=== PATIENT | female | born 1980 | race Hispanic/Latino ===

== ENCOUNTER 2017-04-27 16:29 | Emergency (ER) | payer OTHER ==
[2017-04-27 16:44] VITALS: BP 127/67; PULSE 78; RESP 17; TEMP 98; O2SAT 100
--- NOTE | 2017-04-27 17:41 | ED PDOC ---
HPI: Female Pain Time Seen by Provider: 04/27/17 17:19 Chief Complaint (Nursing): Female Genitourinary Chief Complaint (Provider): Pelvic cramps History Per: Patient History/Exam Limitations: no limitations Onset/Duration Of Symptoms: Days (two days) Current Symptoms Are (Timing): Still Present Additional History Per: Patient Additional Complaint(s): Pt. with vaginal bleeding, improved now. Pelvic cramps. No back pain, dysuria , weakness. No nausea. 7wks preg. Past Medical History Reviewed: Nursing Documentation, Vital Signs Vital Signs: Last Vital Signs Temp 98 F 04/27/17 16:41 Pulse 78 04/27/17 16:41 Resp 17 04/27/17 16:41 BP 127/67 04/27/17 16:41 Pulse Ox 100 04/27/17 16:41 - Medical History PMH: No Chronic Diseases - Surgical History Surgical History: No Surg Hx - Family History Family History: States: Unknown Family Hx - Living Arrangements Living Arrangements: With Family - Immunization History Hx Tetanus Toxoid Vaccination: No Hx Influenza Vaccination: No Hx Pneumococcal Vaccination: No - Allergies Allergies/Adverse Reactions: Allergies Allergy/AdvReac Type Severity Reaction Status Date / Time No Known Allergies Allergy Verified 04/27/17 16:40 Review of Systems ROS Statement: Except As Marked, All Systems Reviewed And Found Negative Genitourinary Female: Positive for: Vaginal Bleeding, Pelvic Pain Physical Exam - Reviewed Nursing Documentation Reviewed: Yes Vital Signs Reviewed: Yes - Physical Exam Appears: Positive for: Non-toxic, No Acute Distress Head Exam: Positive for: ATRAUMATIC, NORMAL INSPECTION, NORMOCEPHALIC Skin: Positive for: Normal Color, Warm, DRY Eye Exam: Positive for: EOMI, Normal appearance, PERRL ENT: Positive for: Normal ENT Inspection Neck: Positive for: Normal, Painless ROM Cardiovascular/Chest: Positive for: Regular Rate, Rhythm Respiratory: Positive for: CNT, Normal Breath Sounds Gastrointestinal/Abdominal: Positive for: Bowel Sounds, Soft, Tenderness ( across lower pelvic) Back: Positive for: Normal Inspection. Negative for: L CVA Tenderness, R CVA Tenderness Extremity: Positive for: Normal ROM. Negative for: Tenderness, Pedal Edema Neurologic/Psych: Positive for: Alert, Oriented - Laboratory Results Result Diagrams: 04/27/17 19:30 04/27/17 19:30 - ECG O2 Sat by Pulse Oximetry: 100 Pulse Ox Interpretation: Normal - CT Scan/US US Other Rad Studies (CT/US): Read By Radiologist Other Rad Interpretation: SLIUP - Progress ED Course And Treament: 2042: Stable. AAOx3. Pain free. Tolerated PO. Disposition - Clinical Impression Clinical Impression: Threatened - Patient ED Disposition Is Patient to be Admitted: No Counseled Patient/Family Regarding: Studies Performed, Diagnosis, Need For Followup - Disposition [facility] - [facility]17 Disposition: Routine/Home Disposition Time: 22:00 Condition: STABLE Additional Instructions: Return if not better in 3 days. Instructions: Threatened Miscarriage Forms: [facility] (Tongan), [facility] ED School/Work Excuse
--- NOTE | 2017-04-27 19:43 | US ---
EXAM: US , Transvaginal EXAM DATE/TIME: 04/27/2017 5:41 PM CLINICAL HISTORY: 36 years old, female; Pain; complicated by abdominal or pelvic pain; Lower; First trimester; Gestational age or lmp: 03/03/2017; ; Additional info: Preg and pain TECHNIQUE: Real-time transvaginal obstetrical ultrasound of the maternal pelvis and a first trimester with image documentation. Transvaginal imaging was used for better evaluation of the fetus and adnexa. COMPARISON: There are no prior studies for comparison. FINDINGS: Gestation: There is a single intrauterine gestation.Gestational sac has mean diameter 20.2 mm. A yolk sac is present, internal diameter measures 2 mm.Crenshaw rump length measures 7.2 mm. There is embryonic heart rate of 119 beats per minute. Uterus: Uterus measures approximately 7.3 x 4.7 x 5.7 cm. Cervix is closed, 3.5 cm in length. Ovaries: Left ovary measures approximately 1.5 x 1 x 0.9 cm. right ovary measures approximately 4 x 2.2 x 2.4 cm. There is a corpus luteum in the right ovary.There is flow in both ovaries on Doppler imaging. Free fluid: No free fluid. Bladder: Bladder is incompletely distended. IMPRESSION: 6 week 4 day single living intrauterine gestation, estimated date of delivery 12/17/17; right corpus luteum
[2017-04-27 19:49] LABS: BASO # 0.1 K/uL (0.0-0.2); BASO % 0.8 % (0.0-2.0); EOS # 0.4 K/uL (0.0-0.7); EOS % 4.1 % (0.0-4.0); HEMOGLOBIN 12.9 g/dL (12.0-16.0); LYMPH # 2.4 K/uL (1.0-4.3); LYMPH % 27.2 % (20.0-40.0); MEAN CELL VOLUME 88.5 fl (81.0-99.0); MEAN CORPUSCULAR HEMOGLOBIN 30.4 pg (27.0-31.0); MEAN CORPUSCULAR HGB CONC 34.3 g/dL (33.0-37.0); MEAN PLATELET VOLUME 7.6 fl (7.2-11.7); MONO # 0.6 K/uL (0.0-0.8); MONO % 7.2 % (0.0-10.0); NEUT # 5.3 K/uL (1.8-7.0); NEUT % 60.7 % (50.0-75.0); NRBC % 0.1 % (0.0-0.0); RBC 4.24 Mil/uL (3.80-5.20); RED CELL DISTRIBUTION WIDTH 12.2 % (11.5-14.5); WHITE BLOOD COUNT 8.7 K/uL (4.8-10.8)
[2017-04-27 19:53] LABS: ALB/GLOB RATIO 1.4 (1.0-2.1); ALBUMIN 4.2 g/dL (3.5-5.0); ALT/SGPT 35 U/L (9-52); AST/SGOT 21 U/L (14-36); BLOOD UREA NITROGEN 12 mg/dl (7-17); CALCIUM 9.3 mg/dL (8.4-10.2); GFR AFRICAN-AMERICAN > 60; GFR NON-AFRICAN AMERICAN > 60
== END 2017-04-27 22:31 | disposition home or self-care (01) ==
LOC: H.ER 16:29
DX: O20.0 Threatened abortion (principal); Z3A.01 Less than 8 weeks gestation of pregnancy